=== PATIENT | male | born 1940 | race Caucasian/White ===

== ENCOUNTER 2017-07-11 10:11 | Day surgery (SDC) | payer MEDICARE, OTHER ==
[~2017-07-11] VITALS: Ht 180.3 cm; Wt 103.0 kg
[2017-07-11] VITALS (12 sets, daily range): BP systolic 122–159; BP diastolic 63–88
[~2017-07-11 10:11] MED LIST: APIX2.5T PO; CHOL100024 PO; FLO0.4C PO; GABA-532 PO; GLUC-133 PO; MULT-1141 PO; MULT-342 PO; OXYB5TAB11 PO; SOTA80TA69 PO
[2017-07-11] MEDS ORDERED: amiodarone in dextrose, iso-osm 150mg/100ml bag IV ONE (10:50)
[2017-07-11] MEDS ORDERED: MIDAZolam 5mg/ml 2ml vial IV ONE (10:50)
[2017-07-11] MEDS ORDERED: normal saline 1000ml 1,000 ML IV SCH (10:50)
[2017-07-11] MEDS ORDERED: diphenhydrAMINE 25mg capsule PO ONE (10:50)
[2017-07-11] MEDS ORDERED: morphine 10mg/ml inj. IV ONE (10:50)
[2017-07-11] MEDS ORDERED: atropine 0.1mg/ml 10ml syringe IV ONE (10:50)
[2017-07-11] MEDS ORDERED: LORazepam 0.5 MG tablet PO ONE (10:50)
[2017-07-11] MEDS ORDERED: APIX5TAB3 PO (10:57)
== END 2017-07-11 14:50 | disposition home or self-care (01) ==
LOC: SSTAY O 10:11
PROVIDERS: ATTEND Internal Medicine Cardiovascular Disease
DX: I48.0 Paroxysmal atrial fibrillation (principal); I10 Essential (primary) hypertension; I35.1 Nonrheumatic aortic (valve) insufficiency; Z79.899 Other long term (current) drug therapy; Z86.010 Personal history of colon polyps; Z96.653 Presence of artificial knee joint, bilateral; Z98.890 Other specified postprocedural states; Z82.49 Family history of ischemic heart disease and other diseases of the circulatory system; Z80.9 Family history of malignant neoplasm, unspecified; Z87.891 Personal history of nicotine dependence
CPT/HCPCS: 92960; 93005; J0461; J2250; J2270; J7030; Q0163; J0282

== ENCOUNTER 2017-10-03 05:54 | Day surgery (SDC) | payer MEDICARE, OTHER ==
[2017-10-02 14:06] LABS: BASOPHILS % (AUTO) 0.3 % (0-1); EOSINOPHILS # (AUTO) 0.2 X10'3 (0-0.9); EOSINOPHILS % (AUTO) 2.8 % (0-6); HEMOGLOBIN 13.6 g/dl (14.0-17.9); LYMPHOCYTES # (AUTO) 1.4 X10'3 (1.1-4.8); LYMPHOCYTES % (AUTO) 23.5 % (21-51); MEAN CORPUSCULAR HEMOGLOBIN 32.7 PG (27.0-31.0); MEAN CORPUSCULAR VOLUME 96.1 FL (78-98); MEAN PLATELET VOLUME 9.8 FL (7.4-10.4); MONOCYTES # (AUTO) 0.5 X10'3 (0-0.9); NEUTROPHILS # (AUTO) 3.8 X10'3 (1.8-7.7); NEUTROPHILS % (AUTO) 64.4 % (42-75); PLATELET COUNT 210 X10'3 (140-440); RED BLOOD COUNT 4.16 X10'6 (4.70-6.10); RED CELL DISTRIBUTION WIDTH 13.7 % (11.5-14.5)
[2017-10-02 14:15] LABS: ALBUMIN 3.7 G/DL (3.4-5.0); ANION GAP 6 (8-16); BLOOD UREA NITROGEN 11 MG/DL (7-18); CALCIUM 8.9 MG/DL (8.5-10.1); CHLORIDE 104 MMOL/L (99-107); GLUCOSE 85 MG/DL (70-104); POTASSIUM 4.5 MMOL/L (3.5-5.1); SODIUM 138 MMOL/L (135-145); TOTAL CARBON DIOXIDE 27.9 MMOL/L (24-32); eGFR 73 ML/MIN
[2017-10-02 14:17] LABS: PARTIAL THROMBOPLASTIN TIME 25 SECONDS (22-32)
[2017-10-03] VITALS (16 sets, daily range): BP systolic 115–178; BP diastolic 66–90
[~2017-10-03] VITALS: Ht 180.3 cm; Wt 102.6 kg
[~2017-10-03 05:54] MED LIST changes: -APIX2.5T PO; +APIX5TAB3 PO; -CHOL100024 PO; -GLUC-133 PO; -MULT-1141 PO; -MULT-342 PO; -SOTA80TA69 PO; +SOTA80TA73 PO
[2017-10-03] MEDS ORDERED: CHOL100034 PO (06:16)
[2017-10-03] MEDS ORDERED: GLUC1TAB21 PO (06:16)
[2017-10-03] MEDS ORDERED: MULT-1180 PO (06:16)
[2017-10-03] MEDS ORDERED: ceFAZolin 1GM/D5W- ADD-VANTAGE 50 ML IV ONE ×2 (06:35→07:24)
[2017-10-03] MEDS ORDERED: midazolam 2 mg/2 ml injection ONE ×2 (07:24→08:36)
[2017-10-03] MEDS ORDERED: fentaNYL/PF 50MCG/1 ML 2ML syringe ONE (07:24)
[2017-10-03] MEDS ORDERED: ceFAZolin 1000mg inj ONE (07:24)
[2017-10-03] MEDS ORDERED: lidocaine 1%/epinephrine 1:100,000 injection 50ml vial ONE (07:24)
[2017-10-03] MEDS ORDERED: HYDROcodone/acetaminophen 5mg/325mg tablet PO PRN (09:40)
[2017-10-03] MEDS: HYDROcodone/acetaminophen 10/325mg tab PO PRN ×2 (10:38→15:41)
[2017-10-03] MEDS ORDERED: ceFAZolin 1GM/D5W- ADD-VANTAGE 50 ML IV SCH (16:00)
== END 2017-10-03 15:55 | disposition home or self-care (01) ==
LOC: SSTAY O 05:54
PROVIDERS: ATTEND Internal Medicine Cardiovascular Disease
DX: I49.5 Sick sinus syndrome (principal); I10 Essential (primary) hypertension; I48.0 Paroxysmal atrial fibrillation; I35.1 Nonrheumatic aortic (valve) insufficiency; G47.33 Obstructive sleep apnea (adult) (pediatric); E78.5 Hyperlipidemia, unspecified; I49.8 Other specified cardiac arrhythmias; M19.90 Unspecified osteoarthritis, unspecified site; L40.8 Other psoriasis; E66.9 Obesity, unspecified; Z86.010 Personal history of colon polyps; Z68.31 Body mass index [BMI] 31.0-31.9, adult; Z87.891 Personal history of nicotine dependence; Z79.891 Long term (current) use of opiate analgesic; Z79.01 Long term (current) use of anticoagulants; Z96.653 Presence of artificial knee joint, bilateral; Z90.49 Acquired absence of other specified parts of digestive tract; Z91.018 Allergy to other foods; Z79.899 Other long term (current) drug therapy; Z98.890 Other specified postprocedural states; Z82.49 Family history of ischemic heart disease and other diseases of the circulatory system; Z80.9 Family history of malignant neoplasm, unspecified
CPT/HCPCS: 33208; 36415; 71046; 80048; 85025; 85610; 85730; 93005; 99152; 99153; A4565; C1785; C1894; C1898; J0690; J2250; J3010; J3490; J7030; A4620

== ENCOUNTER 2018-01-14 05:51 | Day surgery (SDC) | payer MEDICARE, OTHER ==
[2018-01-13 16:57] LABS: BASOPHILS % (AUTO) 0.3 % (0-1); EOSINOPHILS # (AUTO) 0.2 X10'3 (0-0.9); EOSINOPHILS % (AUTO) 2.5 % (0-6); HEMATOCRIT 42.9 % (42.0-52.0); HEMOGLOBIN 14.1 g/dl (14.0-17.9); LYMPHOCYTES # (AUTO) 1.6 X10'3 (1.1-4.8); LYMPHOCYTES % (AUTO) 22.6 % (21-51); MEAN CORPUSCULAR HEMOGLOBIN 31.5 PG (27.0-31.0); MEAN CORPUSCULAR HGB CONC 32.9 % (33.0-36.5); MEAN CORPUSCULAR VOLUME 95.7 FL (78-98); MEAN PLATELET VOLUME 9.7 FL (7.4-10.4); MONOCYTES # (AUTO) 0.5 X10'3 (0-0.9); MONOCYTES % (AUTO) 6.8 % (2-12); NEUTROPHILS # (AUTO) 4.8 X10'3 (1.8-7.7); NEUTROPHILS % (AUTO) 67.8 % (42-75); PLATELET COUNT 228 X10'3 (140-440); RED BLOOD COUNT 4.49 X10'6 (4.70-6.10); RED CELL DISTRIBUTION WIDTH 13.3 % (11.5-14.5); WHITE BLOOD COUNT 7.1 X10'3 (4.5-11.0)
[2018-01-13 17:08] LABS: ALBUMIN 3.7 G/DL (3.4-5.0); ANION GAP 9 (8-16); BLOOD UREA NITROGEN 17 MG/DL (7-18); BUN/CREATININE RATIO 14.9 (5.4-32.0); CALCIUM 9.1 MG/DL (8.5-10.1); CHLORIDE 100 MMOL/L (99-107); CREATININE 1.14 MG/DL (0.60-1.10); GLUCOSE 114 MG/DL (70-104); POTASSIUM 4.6 MMOL/L (3.5-5.1); SODIUM 136 MMOL/L (135-145); TOTAL CARBON DIOXIDE 26.8 MMOL/L (24-32); eGFR 62 ML/MIN
[2018-01-13 17:18] LABS: PROTHROMBIN TIME 10.3 SECONDS (9.0-12.0)
[2018-01-14] VITALS (20 sets, daily range): BP systolic 101–152; BP diastolic 54–98
[~2018-01-14] VITALS: Ht 180.3 cm; Wt 105.9 kg
[~2018-01-14 05:51] MED LIST changes: +CHOL100034 PO; +GLUC1TAB21 PO; +MULT-1180 PO; -OXYB5TAB11 PO
[2018-01-14] MEDS ORDERED: MIDAZolam 5mg/ml 2ml vial IV ONE (06:15)
[2018-01-14] MEDS ORDERED: normal saline 1000ml 1,000 ML IV SCH (06:15)
[2018-01-14] MEDS ORDERED: morphine 10mg/ml inj. IV ONE (06:15)
[2018-01-14] MEDS ORDERED: amiodarone in dextrose, iso-osm 150mg/100ml bag IV ONE (06:15)
[2018-01-14] MEDS ORDERED: LORazepam 0.5 MG tablet PO ONE (06:15)
[2018-01-14] MEDS ORDERED: diphenhydrAMINE 25mg capsule PO ONE (06:15)
== END 2018-01-14 11:35 | disposition home or self-care (01) ==
LOC: SSTAY O 05:51
PROVIDERS: ATTEND Internal Medicine Cardiovascular Disease
DX: I48.1 Persistent atrial fibrillation (principal); G47.33 Obstructive sleep apnea (adult) (pediatric); I10 Essential (primary) hypertension; E66.9 Obesity, unspecified; I49.5 Sick sinus syndrome; I44.7 Left bundle-branch block, unspecified; I25.2 Old myocardial infarction; I49.8 Other specified cardiac arrhythmias; M19.90 Unspecified osteoarthritis, unspecified site; H91.8X3 Other specified hearing loss, bilateral; L40.8 Other psoriasis; Z68.32 Body mass index [BMI] 32.0-32.9, adult; Z87.891 Personal history of nicotine dependence; Z98.41 Cataract extraction status, right eye; Z98.42 Cataract extraction status, left eye; Z95.0 Presence of cardiac pacemaker; Z79.891 Long term (current) use of opiate analgesic; Z79.01 Long term (current) use of anticoagulants; Z86.010 Personal history of colon polyps; Z96.653 Presence of artificial knee joint, bilateral; Z90.49 Acquired absence of other specified parts of digestive tract; Z91.018 Allergy to other foods; Z79.899 Other long term (current) drug therapy; Z98.890 Other specified postprocedural states; Z82.49 Family history of ischemic heart disease and other diseases of the circulatory system; Z80.9 Family history of malignant neoplasm, unspecified
CPT/HCPCS: 36415; 80048; 85025; 85610; 92960; 93005; J0282; J2250; J2270; J7030

== ENCOUNTER 2018-05-28 07:58 | Day surgery (SDC) | payer MEDICARE, OTHER ==
[2018-05-27 16:04] LABS: BASOPHILS % (AUTO) 0.4 % (0-1); EOSINOPHILS # (AUTO) 0.1 X10'3 (0-0.9); EOSINOPHILS % (AUTO) 1.1 % (0-6); HEMATOCRIT 43.2 % (42.0-52.0); HEMOGLOBIN 14.8 g/dl (14.0-17.9); LYMPHOCYTES # (AUTO) 1.4 X10'3 (1.1-4.8); MEAN CORPUSCULAR HEMOGLOBIN 32.5 PG (27.0-31.0); MEAN CORPUSCULAR HGB CONC 34.3 g/dL (33.0-36.5); MEAN CORPUSCULAR VOLUME 94.8 FL (78-98); MEAN PLATELET VOLUME 9.8 FL (7.4-10.4); MONOCYTES # (AUTO) 0.5 X10'3 (0-0.9); MONOCYTES % (AUTO) 8.4 % (2-12); NEUTROPHILS % (AUTO) 66.1 % (42-75); PLATELET COUNT 181 X10'3 (140-440); RED BLOOD COUNT 4.56 X10'6 (4.70-6.10); RED CELL DISTRIBUTION WIDTH 13.5 % (11.5-14.5)
[2018-05-27 16:09] LABS: ALBUMIN 3.8 G/DL (3.4-5.0); ANION GAP 9 (8-16); BLOOD UREA NITROGEN 18 MG/DL (7-18); BUN/CREATININE RATIO 16.5 (5.4-32.0); CALCIUM 9.2 MG/DL (8.5-10.1); CHLORIDE 102 MMOL/L (99-107); CREATININE 1.09 MG/DL (0.60-1.10); GLUCOSE 98 MG/DL (70-104); POTASSIUM 4.2 MMOL/L (3.5-5.1); SODIUM 136 MMOL/L (135-145); TOTAL CARBON DIOXIDE 25.2 MMOL/L (24-32); eGFR 66 ML/MIN
[2018-05-27 16:20] LABS: INR 1.1 INR; PROTHROMBIN TIME 10.7 SECONDS (9.0-12.0)
[~2018-05-28] VITALS: Ht 180.3 cm; Wt 106.5 kg
[2018-05-28] VITALS (15 sets, daily range): BP systolic 96–147; BP diastolic 59–89
[~2018-05-28 07:58] MED LIST changes: -CHOL100034 PO; -MULT-1180 PO
[2018-05-28] MEDS ORDERED: morphine 10mg/ml inj. IV ONE (08:20)
[2018-05-28] MEDS ORDERED: normal saline 1000ml 1,000 ML IV SCH (08:20)
[2018-05-28] MEDS ORDERED: MIDAZolam 5mg/ml 2ml vial IV ONE (08:20)
[2018-05-28] MEDS ORDERED: atropine 0.1mg/ml 10ml syringe IV ONE (08:20)
[2018-05-28] MEDS ORDERED: amiodarone in dextrose, iso-osm 150mg/100ml bag IV ONE (08:20)
== END 2018-05-28 10:55 | disposition home or self-care (01) ==
LOC: SSTAY O 07:58
PROVIDERS: ATTEND Internal Medicine Cardiovascular Disease
DX: I48.1 Persistent atrial fibrillation (principal); G47.33 Obstructive sleep apnea (adult) (pediatric); I49.5 Sick sinus syndrome; I35.1 Nonrheumatic aortic (valve) insufficiency
CPT/HCPCS: 36415; 80048; 85025; 85610; 92960; 93005; J0282; J2250; J2270; J7030

== ENCOUNTER 2019-03-24 05:56 | Day surgery (SDC) | payer MEDICARE, OTHER ==
[2019-03-23 15:40] LABS: BASOPHILS % (AUTO) 0.4 % (0-1); EOSINOPHILS # (AUTO) 0.1 X10'3 (0-0.9); EOSINOPHILS % (AUTO) 1.3 % (0-6); HEMOGLOBIN 15.3 g/dl (14.0-17.9); LYMPHOCYTES # (AUTO) 1.2 X10'3 (1.1-4.8); LYMPHOCYTES % (AUTO) 20.7 % (21-51); MEAN CORPUSCULAR HEMOGLOBIN 32.6 PG (27.0-31.0); MEAN CORPUSCULAR HGB CONC 34.1 g/dL (33.0-36.5); MEAN CORPUSCULAR VOLUME 95.8 FL (78-98); MEAN PLATELET VOLUME 9.6 FL (7.4-10.4); MONOCYTES # (AUTO) 0.3 X10'3 (0-0.9); MONOCYTES % (AUTO) 5.9 % (2-12); NEUTROPHILS # (AUTO) 4.2 X10'3 (1.8-7.7); NEUTROPHILS % (AUTO) 71.7 % (42-75); PLATELET COUNT 192 X10'3 (140-440); RED CELL DISTRIBUTION WIDTH 13.5 % (11.5-14.5); WHITE BLOOD COUNT 5.8 X10'3 (4.5-11.0)
[2019-03-23 15:52] LABS: PARTIAL THROMBOPLASTIN TIME 26 SECONDS (22-32)
[2019-03-23 15:53] LABS: ALBUMIN 4.1 G/DL (3.4-5.0); ANION GAP 5 (8-16); BLOOD UREA NITROGEN 18 MG/DL (7-18); BUN/CREATININE RATIO 16.8 (5.4-32.0); CALCIUM 9.1 MG/DL (8.5-10.1); CHLORIDE 103 MMOL/L (99-107); CREATININE 1.07 MG/DL (0.60-1.10); GLUCOSE 142 MG/DL (70-104); POTASSIUM 4.5 MMOL/L (3.5-5.1); SODIUM 139 MMOL/L (135-145); TOTAL CARBON DIOXIDE 30.9 MMOL/L (24-32); eGFR 67 ML/MIN
[2019-03-24] VITALS (13 sets, daily range): BP systolic 106–152; BP diastolic 60–104
[~2019-03-24] VITALS: Ht 180.3 cm; Wt 109.2 kg
[2019-03-24] MEDS ORDERED: normal saline 1,000 ML IV SCH (06:20)
[2019-03-24] MEDS ORDERED: LORazepam 0.5 MG tablet PO PRN (06:20)
[2019-03-24] MEDS ORDERED: diphenhydrAMINE 25mg capsule PO PRN (06:20)
[2019-03-24] MEDS ORDERED: LIDOcaine/PRILOcaine 5gm cream TP ONE ×3 (06:55→07:10)
[2019-03-24] MEDS ORDERED: nitroGLYCERIN-Tridil 50MG/D5W 250 ML IV ONE (07:34)
[2019-03-24] MEDS ORDERED: verapamil 2.5 mg/ml inj IV ONE (07:35)
[2019-03-24] MEDS ORDERED: midazolam 2 mg/2 ml injection ONE (07:35)
[2019-03-24] MEDS ORDERED: LIDOcaine 1% (10mg/ml)w/preservative injection 20ml MDV ONE (07:35)
[2019-03-24] MEDS ORDERED: fentaNYL/PF 50MCG/1 ML 2ML syringe ONE (07:35)
[2019-03-24] MEDS ORDERED: heparin 1,000unit/ml 10ml vial 10 ML ONE (07:35)
[2019-03-24] MEDS ORDERED: iohexol 350MG/ML 100ml bottle IV ONE (07:35)
[2019-03-24] MEDS ORDERED: iohexol 350 MG/ML 50ML vial IV ONE ×2 (07:35→08:34)
[2019-03-24] MEDS ORDERED: LORA10TA7 PO (07:49)
[2019-03-24] MEDS ORDERED: OXYB15TA19 PO (07:49)
[2019-03-24] MEDS ORDERED: FLO0.4C PO (07:49)
[2019-03-24 08:45] LABS: ISTAT HGB ART 14.6 g/dl (14.0-18.0); ISTAT Hct ART 43 %PCV (42-52); ISTAT O2 SATURATION ARTERIAL 97 % (95-98); ISTAT SOURCE ART
[2019-03-24 08:46] LABS: ISTAT Hct MIX 43 %PCV (42-52); ISTAT O2 SATURATION MIX VENOUS 63 % (60-80); ISTAT SOURCE MIX
[2019-03-24] MEDS ORDERED: hydrALAZINE 20mg/ml inj. IV ONE (09:10)
--- NOTE | 2019-03-24 09:40 | NUR ---
Pt ate 100% of breakfast tray.
--- NOTE | 2019-03-24 09:45 | NUR ---
pt tolerated hydralazine as ordered. vs stable as charted. pt resting comfortably in bed. at bedside.
--- NOTE | 2019-03-24 11:47 | NUR ---
pt ambulated to bathroom, voided. back in bed. vs stable as charted
--- NOTE | 2019-03-24 12:05 | NUR ---
Problems reprioritized. Patient report given, questions answered & plan of care reviewed with Crystal LOZANO.
== END 2019-03-24 14:55 | disposition home or self-care (01) ==
LOC: SSTAY O 05:56
PROVIDERS: ATTEND Internal Medicine Cardiovascular Disease
DX: R94.39 Abnormal result of other cardiovascular function study (principal); I25.10 Atherosclerotic heart disease of native coronary artery without angina pectoris; I10 Essential (primary) hypertension; I49.5 Sick sinus syndrome; E66.9 Obesity, unspecified; Z68.33 Body mass index [BMI] 33.0-33.9, adult; I48.91 Unspecified atrial fibrillation; Z86.010 Personal history of colon polyps; Z96.653 Presence of artificial knee joint, bilateral; Z95.0 Presence of cardiac pacemaker
CPT/HCPCS: 36415; 80048; 82803; 85014; 85025; 85610; 85730; 93005; 93460; 99152; 99153; C1769; C1894; J0360; J1644; J2001; J2250; J3010; J7030; Q0163; Q9967; A4620; J3490

== ENCOUNTER 2019-04-23 06:55 | Day surgery (SDC) | payer MEDICARE, OTHER ==
[2019-04-22 10:45] LABS: BASOPHILS % (AUTO) 0.3 % (0-1); EOSINOPHILS # (AUTO) 0.1 X10'3 (0-0.9); EOSINOPHILS % (AUTO) 1.8 % (0-6); HEMATOCRIT 42.7 % (42.0-52.0); HEMOGLOBIN 14.6 g/dl (14.0-17.9); LYMPHOCYTES # (AUTO) 1.1 X10'3 (1.1-4.8); LYMPHOCYTES % (AUTO) 22.5 % (21-51); MEAN CORPUSCULAR HEMOGLOBIN 32.8 PG (27.0-31.0); MEAN CORPUSCULAR HGB CONC 34.1 g/dL (33.0-36.5); MEAN CORPUSCULAR VOLUME 96.3 FL (78-98); MEAN PLATELET VOLUME 9.9 FL (7.4-10.4); MONOCYTES # (AUTO) 0.4 X10'3 (0-0.9); NEUTROPHILS # (AUTO) 3.4 X10'3 (1.8-7.7); NEUTROPHILS % (AUTO) 67.4 % (42-75); PLATELET COUNT 182 X10'3 (140-440); RED BLOOD COUNT 4.44 X10'6 (4.70-6.10); RED CELL DISTRIBUTION WIDTH 13.8 % (11.5-14.5); WHITE BLOOD COUNT 5.1 X10'3 (4.5-11.0)
[2019-04-22 10:58] LABS: ALBUMIN 3.9 G/DL (3.4-5.0); ANION GAP 4 (8-16); BLOOD UREA NITROGEN 13 MG/DL (7-18); BUN/CREATININE RATIO 13.7 (5.4-32.0); CALCIUM 9.3 MG/DL (8.5-10.1); CHLORIDE 105 MMOL/L (99-107); CREATININE 0.95 MG/DL (0.60-1.10); GLUCOSE 104 MG/DL (70-104); POTASSIUM 4.7 MMOL/L (3.5-5.1); SODIUM 139 MMOL/L (135-145); TOTAL CARBON DIOXIDE 29.9 MMOL/L (24-32); eGFR 77 ML/MIN
[~2019-04-23] VITALS: Ht 177.8 cm; Wt 110.0 kg
[2019-04-23] VITALS (14 sets, daily range): BP systolic 120–145; BP diastolic 77–91
[~2019-04-23 06:55] MED LIST changes: +LORA10TA7 PO; +OXYB15TA19 PO
[2019-04-23] MEDS ORDERED: LORazepam 0.5 MG tablet PO ONE (07:15)
[2019-04-23] MEDS ORDERED: amiodarone in dextrose, iso-osm 150mg/100ml bag IV ONE (07:15)
[2019-04-23] MEDS ORDERED: MIDAZolam 1mg/ml 10ml vial IV ONE (07:15)
[2019-04-23] MEDS ORDERED: morphine 10mg/ml inj. IV ONE (07:15)
[2019-04-23] MEDS ORDERED: diphenhydrAMINE 25mg capsule PO ONE (07:15)
[2019-04-23] MEDS ORDERED: normal saline 1000ml 1,000 ML IV SCH (07:15)
[2019-04-23] MEDS ORDERED: atropine 0.1mg/ml 10ml syringe IV ONE (07:15)
[2019-04-23] MEDS ORDERED: MULT-1085 PO (09:04)
[2019-04-23] MEDS ORDERED: OXYB10TA4 PO (09:04)
[2019-04-23] MEDS ORDERED: CHOL200077 PO (09:04)
== END 2019-04-23 11:25 | disposition home or self-care (01) ==
LOC: SSTAY O 06:55
PROVIDERS: ATTEND Internal Medicine Cardiovascular Disease
DX: I48.19 Other persistent atrial fibrillation (principal); I10 Essential (primary) hypertension; Z95.0 Presence of cardiac pacemaker; I49.5 Sick sinus syndrome
CPT/HCPCS: 36415; 80048; 85025; 85610; 92960; 93005; J2250; J2270; J7030; Q0163

== ENCOUNTER 2019-07-14 10:19 | Outpatient (CLI) | payer MEDICARE, OTHER ==
[~2019-07-14 10:19] MED LIST changes: +CHOL200077 PO; -GLUC1TAB21 PO; -LORA10TA7 PO; +MULT-1085 PO; +OXYB10TA4 PO; -OXYB15TA19 PO
[2019-07-14 11:06] LABS: ALANINE AMINOTRANSFERASE 36 U/L (12-78); ALBUMIN 3.9 G/DL (3.4-5.0); ALBUMIN/GLOBULIN RATIO 1.1 (1.1-1.5); ALKALINE PHOSPHATASE 51 IU/L (46-116); ANION GAP 8 (8-16); ASPARTATE AMINO TRANSFERASE 23 U/L (10-37); BILIRUBIN,TOTAL 1.1 MG/DL (0.1-1.0); BLOOD UREA NITROGEN 9 MG/DL (7-18); BUN/CREATININE RATIO 9.1 (5.4-32.0); CALCIUM 8.9 MG/DL (8.5-10.1); CHLORIDE 102 MMOL/L (99-107); CHOLESTEROL 151 MG/DL (0-200); CREATININE 0.99 MG/DL (0.60-1.10); GLUCOSE 116 MG/DL (70-104); HDL CHOLESTEROL 74 MG/DL (35-60); LDL CHOLESTEROL 61 MG/DL (50-100); POTASSIUM 4.6 MMOL/L (3.5-5.1); SODIUM 137 MMOL/L (135-145); TOTAL CARBON DIOXIDE 26.7 MMOL/L (24-32); TOTAL PROTEIN 7.4 G/DL (6.4-8.2); TRIGLYCERIDES 91 MG/DL (20-135); eGFR 73 ML/MIN
== END 2019-07-14 23:59 | disposition home or self-care (01) ==
LOC: LAB 10:19
PROVIDERS: ATTEND Physician Assistant Medical
DX: E78.5 Hyperlipidemia, unspecified (principal); I48.91 Unspecified atrial fibrillation
CPT/HCPCS: 36415; 80053; 80061

== ENCOUNTER 2020-04-13 12:53 | Outpatient (CLI) | payer MEDICARE, OTHER ==
[2020-04-13 13:51] LABS: ALANINE AMINOTRANSFERASE 34 U/L (12-78); ALBUMIN 3.9 G/DL (3.4-5.0); ALBUMIN/GLOBULIN RATIO 1.1 (1.1-1.5); ALKALINE PHOSPHATASE 57 IU/L (46-116); ANION GAP 5 (8-16); ASPARTATE AMINO TRANSFERASE 14 U/L (10-37); BILIRUBIN,TOTAL 1.2 MG/DL (0.1-1.0); BLOOD UREA NITROGEN 15 MG/DL (7-18); BUN/CREATININE RATIO 16.7 (5.4-32.0); CALCIUM 8.9 MG/DL (8.5-10.1); CHLORIDE 106 MMOL/L (99-107); CHOL/HDL RATIO 1.8 (0.00-4.99); CHOLESTEROL 135 MG/DL (0-200); GLUCOSE 107 MG/DL (70-104); HDL CHOLESTEROL 77 MG/DL (35-60); LDL CHOLESTEROL 47 MG/DL (50-100); POTASSIUM 4.1 MMOL/L (3.5-5.1); SODIUM 138 MMOL/L (135-145); TOTAL CARBON DIOXIDE 27.2 MMOL/L (24-32); TOTAL PROTEIN 7.3 G/DL (6.4-8.2); TRIGLYCERIDES 65 MG/DL (20-135); eGFR 81 ML/MIN
== END 2020-04-13 23:59 | disposition home or self-care (01) ==
LOC: LAB 12:53
PROVIDERS: ATTEND Internal Medicine Interventional Cardiology
DX: E78.5 Hyperlipidemia, unspecified (principal)
CPT/HCPCS: 36415; 80053; 80061

== ENCOUNTER 2020-07-12 12:14 | Outpatient (CLI) | payer MEDICARE, OTHER ==
[2020-07-12 13:07] LABS: BASOPHILS % (AUTO) 0.2 % (0-1); EOSINOPHILS # (AUTO) 0.1 X10'3 (0-0.9); EOSINOPHILS % (AUTO) 1.7 % (0-6); HEMATOCRIT 42.5 % (42.0-52.0); HEMOGLOBIN 14.3 g/dl (14.0-17.9); LYMPHOCYTES # (AUTO) 1.2 X10'3 (1.1-4.8); LYMPHOCYTES % (AUTO) 20.6 % (21-51); MEAN CORPUSCULAR HEMOGLOBIN 32.8 PG (27.0-31.0); MEAN CORPUSCULAR HGB CONC 33.6 g/dL (33.0-36.5); MEAN CORPUSCULAR VOLUME 97.8 FL (78-98); MEAN PLATELET VOLUME 9.9 FL (7.4-10.4); MONOCYTES # (AUTO) 0.5 X10'3 (0-0.9); MONOCYTES % (AUTO) 8.1 % (2-12); NEUTROPHILS # (AUTO) 4.1 X10'3 (1.8-7.7); NEUTROPHILS % (AUTO) 69.4 % (42-75); PLATELET COUNT 179 X10'3 (140-440); RED BLOOD COUNT 4.34 X10'6 (4.70-6.10); RED CELL DISTRIBUTION WIDTH 13.2 % (11.5-14.5)
== END 2020-07-12 23:59 | disposition home or self-care (01) ==
LOC: RAD 12:14
DX: T84.59XA Infection and inflammatory reaction due to other internal joint prosthesis, initial encounter (principal); X58.XXXA Exposure to other specified factors, initial encounter; Y93.89 Activity, other specified; Y92.89 Other specified places as the place of occurrence of the external cause; Y99.8 Other external cause status; Z96.652 Presence of left artificial knee joint
CPT/HCPCS: 36415; 85025; 85651; 86140

== ENCOUNTER 2025-01-27 14:47 | Outpatient (CLI) | payer MEDICARE, OTHER ==
[~2025-01-27] VITALS: Ht 172.7 cm; Wt 100.7 kg
[~2025-01-27 14:47] MED LIST changes: -FLO0.4C PO; +TAMS-55 PO
[2025-01-27 15:03] LABS: ABG BASE EXCESS 1.1 mmol/L (-2.0-3.0); ABG HCO3 25.2 mmol/L (21.0-28.0); ABG OXYGEN SATURATION 96.6 % (94.0-98.0); ABG PCO2 (T) 38.7 mmHg (35.0-48.0); ABG PH (T) 7.432 (7.350-7.450); ABG PO2 (T) 85.5 mmHg (83.0-108.0); ALLEN'S TEST POSITIVE; FCOHb 0.5 % (0.5-1.5); FHHb 3.4 % (0.0-5.0); FIO2 21.0 mmHg/%; FMetHb 0.1 % (0.0-1.5); FO2Hb 96.0 % (94.0-98.0); MODE ROOM AIR; PATIENT TEMPERATURE 37.0; TOTAL HEMOGLOBIN 14.8 G/dl (13.5-17.5)
[2025-01-27] MEDS: albuterol 2.5 MG/3 ML nebule NEB ONE (15:38)
[2025-01-27 15:39] VITALS: PULSE 98; RESP 14; O2SAT 96
[2025-01-27 15:50] VITALS: PULSE 80; RESP 14
--- NOTE | 2025-01-27 17:22 | RADIOLOGY REPORT ---
PROCEDURE: DI CHEST,TWO VIEWS 01/27/2025 04:08 PM INDICATION: COPD COMPARISON: None TECHNIQUE: DI CHEST,TWO VIEWS FINDINGS/IMPRESSION: The lungs are clear. The cardiomediastinal silhouette is enlarged. No pleural effusion or pneumothorax. No acute osseous abnormality. Left-sided dual-chamber pacemaker.
== END 2025-01-27 23:59 | disposition home or self-care (01) ==
LOC: RT 14:47
PROVIDERS: ATTEND Internal Medicine Critical Care Medicine
DX: J44.9 Chronic obstructive pulmonary disease, unspecified (principal); R06.2 Wheezing; R06.01 Orthopnea
CPT/HCPCS: 36600; 71046; 82803; 85018; 94060; 94727; 94729; 94760

== ENCOUNTER 2025-02-05 10:11 | Day surgery (SDC) | payer MEDICARE, OTHER ==
[2025-02-05] VITALS (10 sets, daily range): BP systolic 136–159; BP diastolic 56–91; PULSE 70–80; RESP 11–17; TEMP 98; O2SAT 96–99
[~2025-02-05] VITALS: Ht 172.7 cm; Wt 101.7 kg
--- NOTE | 2025-02-05 11:16 | ELECTROCARDIOGRAPH REPORT ---
[facility] Test Date: 2025-02-05 Test Time: 11:15:06 Pat Name: DANE COOL Department: [facility] Patient ID: [id number] Room: Gender: M Hematology Supervisor: NICKIE : 1940 Requested By: ZEINAB PINON Order Number: [id number] Reading MD: Dr. DB Pinon Measurements Intervals [place] Rate: 80 P: 0 NC: 0 QRS: -89 QRSD: 165 T: 84 QT: 450 QTc: 520 Interpretive Statements Afib/flutter and ventricular-paced rhythm No further analysis attempted due to paced rhythm Electronically Signed On 02-05-2025 20:54:[address] DB Pinon Please click the below link to view image of tracing.
[2025-02-05] MEDS ORDERED: ceFAZolin 2gm/dext,iso 50mL 50 ML IV ONE (11:30)
[2025-02-05 11:41] LABS: MEAN PLATELET VOLUME 9.2 FL (7.4-10.4); RED CELL DISTRIBUTION WIDTH 13.2 % (11.5-14.5)
[2025-02-05 11:51] LABS: APTT 27 SECONDS (22-32); INR 1.1 INR
[2025-02-05 11:53] LABS: CREATININE 1.01 MG/DL (0.60-1.10); TOTAL CARBON DIOXIDE 28.1 MMOL/L (24-32); eCRCL 53 ML/MIN; eGFR 70 ML/MIN
[2025-02-05] MEDS ORDERED: fentaNYL/PF 50MCG/1 ML 2ML syringe ONE (12:11)
[2025-02-05] MEDS ORDERED: LIDOcaine 1% W/epiNEPHrine 1:100,000 20ml vial ONE (12:11)
[2025-02-05] MEDS ORDERED: midazolam 1 mg/ML 2ml injection ONE (12:11)
[2025-02-05] MEDS ORDERED: ATOR20TA66 PO (12:18)
[2025-02-05] MEDS ORDERED: FURO20TA4 PO (12:18)
[2025-02-05] MEDS ORDERED: CEPH-585 PO (14:14)
[2025-02-05] MEDS ORDERED: CARV-50 PO (14:14)
[2025-02-05] MEDS ORDERED: HYDROcodone/acetaminophen 10/325mg tab PO PRN (14:20)
[2025-02-05] MEDS ORDERED: HYDROcodone/acetaminophen 5mg/325mg tablet PO PRN (14:20)
[2025-02-05] MEDS: vancomycin/NS 1 GM ADD-VANTAGE 250 ML X 1 DOSE IV ONE (14:59)
[2025-02-05] MEDS: normal saline 1000ml 1,000 ML IV SCH (15:06)
--- NOTE | 2025-02-05 15:40 | CARDIOLOGY REPORT ---
DATE OF SERVICE: 02/05/2025 DICTATING PHYSICIAN: DB Nance MD GENDER: Male. AGE: 84 years. HEIGHT: 173 cm. WEIGHT: 101.6 kg. BODY SURFACE AREA: 2.15 m2. PRIMARY PHYSICIAN: Aurelia Schumacher INDICATION: The patient is an 84-year-old male with history of hypertension, hyperlipidemia, sleep apnea, sick sinus syndrome, status post PPM, aortic and mitral regurgitation, and nonobstructive CAD. 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 He also has a history of PAF. He used to be on sotalol, but lately he has been in persistent AFib in the last few months after the pacemaker reached JUAN MANUEL. After discussing risks, benefits, and alternative options, the patient prefers to proceed with generator changes. Risks, benefits and alternative options discussed. Informed consent was obtained. PROCEDURES DONE: * Explantation of the old pacemaker. * Implantation of new pacemaker. * Conscious sedation time of 45 minutes BLOOD LOSS: Less than 5 mL. PREPROCEDURE DIAGNOSIS: Permanent pacemaker at elective replacement indicator. POSTPROCEDURE DIAGNOSIS: Permanent pacemaker at elective replacement indicator. DESCRIPTION OF PROCEDURE: The left infraclavicular area was prepped and draped in the usual fashion. The procedure was carried out under conscious sedation and local anesthesia. A horizontal incision was placed over the device site. Using blunt dissection and electrocautery, the prepectoral subcutaneous pacemaker pocket was fashioned. The old generator was extracted. The leads were disconnected, connected to the new pulse generator. Setscrews were tightened. TUG test was performed. The pocket was irrigated with copious antibiotic solution. Pacemaker was suspended in the pacemaker pocket. The pocket was closed with continuous#0 Vicryl followed by interrupted #0 Vicryl. A third layer of interrupted 2-0 Vicryl was placed. Skin approximated with sharon. Pressure dressing was applied. The patient tolerated the procedure well. No complications. TECHNICAL INFORMATION: Explanted device: Miner PM 2240, serial number [id number]. Implanted device: Miner PM 2272, serial number [id number], 02/05/2025. Right atrial lead: Miner 2088TC/52, serial number [id number], 10/03/2017. P-wave amplitude of 1 mV, 400 ohms impedance. The patient is in atrial fibrillation. RV lead: Miner model number 22291DP/58, serial number [id number], 10/03/2017. R-wave amplitude of 7.2 mV, 430 ohms impedance, pacing threshold 1 at 0.5 ms. IMPRESSION: An 84-year-old male with permanent pacemaker with elective replacement indicator, who underwent successful generator change with no complications. RECOMMENDATIONS: Since the patient is in persistent AFib at this time, sotalol has been changed to carvedilol. Continue anticoagulation. DB Nance MD TID: [id number] RECEIPT: [id number] /JESSICA cc: Aurelia Schumacher
== END 2025-02-05 17:00 | disposition home or self-care (01) ==
LOC: SSTAY O 10:11
PROVIDERS: ATTEND Internal Medicine Cardiovascular Disease
DX: Z45.02 Encounter for adjustment and management of automatic implantable cardiac defibrillator (principal); E78.5 Hyperlipidemia, unspecified; G47.33 Obstructive sleep apnea (adult) (pediatric); I10 Essential (primary) hypertension; I49.5 Sick sinus syndrome; I25.10 Atherosclerotic heart disease of native coronary artery without angina pectoris; I08.0 Rheumatic disorders of both mitral and aortic valves; I48.19 Other persistent atrial fibrillation; I48.92 Unspecified atrial flutter; Z98.890 Other specified postprocedural states; Z86.0100 Personal history of colon polyps, unspecified; Z90.49 Acquired absence of other specified parts of digestive tract; Z96.653 Presence of artificial knee joint, bilateral; Z82.49 Family history of ischemic heart disease and other diseases of the circulatory system; Z80.9 Family history of malignant neoplasm, unspecified
CPT/HCPCS: 33228; 36415; 80053; 83735; 85025; 85610; 85730; 93005; 99152; 99153; A6402; C1785; J0690; J1200; J2250; J3010; J3373; J3490; J7030; Z7610; A6449